=== PATIENT | female | born 1990 | race Caucasian/White ===

== ENCOUNTER 2020-04-27 14:59 | Emergency (ER) | payer OTHER ==
[~2020-04-27] VITALS: Ht 162.6 cm; Wt 90.7 kg
[2020-04-27] MEDS ORDERED: HYDROMORPHONE 1 MG/1 ML DISP.SYRIN IV ONE ×2 (15:30→16:45)
[2020-04-27] MEDS ORDERED: KETOROLAC TROMETHAMINE 15 MG INJ IVP ONE (15:30)
[2020-04-27] MEDS ORDERED: ONDANSETRON 4 MG/2 ML VIAL IV ONE (15:30)
[2020-04-27] MEDS ORDERED: IV NORMAL SALINE 1000 ML BAG IV ONE (15:30)
[2020-04-27 15:37] LABS: *BILIRUBIN,URIN NEGATIVE (NEGATIVE); *BLOOD, URINE 1+ (NEGATIVE); *CLARITY,URINE CLEAR (CLEAR); *COLOR,URINE YELLOW (YELLOW); *KETONES,URINE NEGATIVE (NEGATIVE); *UROBILINOGEN,URINE 0.2 E.U./dl (NORMAL); NITRITE, URINE NEGATIVE (NEGATIVE); UGLUCOSE NEGATIVE (NEGATIVE)
[2020-04-27 15:38] LABS: *URINE HCG, QUAL NEG (NEGATIVE); LEUKOCYTE ESTERASE ,URINE NEGATIVE (NEGATIVE)
[2020-04-27 15:42] LABS: BASOPHILS # (AUTO) 0.1 K/uL (0.0-8.0); BASOPHILS % (AUTO) 1.1 % (0.0-2.0); EOSINOPHILS # (AUTO) 0.1 K/uL (0.0-0.7); EOSINOPHILS % (AUTO) 1.5 % (0.0-7.0); HEMATOCRIT 40.3 % (31.2-41.9); HEMOGLOBIN 13.4 g/dL (10.9-14.3); LYMPHOCYTES # (AUTO) 2.4 K/uL (20.0-40.0); LYMPHOCYTES % (AUTO) 34.2 % (20.5-51.5); MEAN CORPUSCULAR HEMOGLOBIN 30.1 uug (24.7-32.8); MEAN CORPUSCULAR HGB CONC 33 g/dL (32.3-35.6); MEAN CORPUSCULAR VOLUME 90.1 fL (75.5-95.3); MONOCYTES # (AUTO) 0.5 K/uL (2.0-10.0); MONOCYTES % (AUTO) 7.6 % (0.0-11.0); NEUTROPHILS # (AUTO) 3.8 K/uL (1.8-8.9); NEUTROPHILS % (AUTO) 55.6 % (38.5-71.5); PLATELET COUNT (AUTO) 299 K/uL (179-408); RED BLOOD CELL COUNT(AUTO) 4.47 MIL/uL (3.63-4.92); WHITE BLOOD COUNT (AUTO) 6.9 K/uL (3.8-11.8)
[2020-04-27 15:44] LABS: CREATININE 0.9 mg/dL (0.6-1.3); POTASSIUM 4.5 mmol/L (3.5-5.1)
[2020-04-27] MEDS ORDERED: HYDROMORPHONE 1 MG/1 ML DISP.SYRIN ONE ×2 (15:48→16:58)
[2020-04-27] MEDS ORDERED: KETOROLAC TROMETHAMINE 30 MG INJ ONE (15:49)
[2020-04-27] MEDS ORDERED: ONDANSETRON 4 MG/2 ML VIAL ONE (15:49)
[2020-04-27 15:50] LABS: BILIRUBIN,DIRECT 0.1 mg/dL (0.0-0.2); BILIRUBIN,TOTAL 0.4 mg/dL (0.2-1.0); ETHANOL < 3 MG/DL (0-0); TOTAL PROTEIN, SERUM 7.2 g/dL (6.4-8.2)
[2020-04-27 15:52] LABS: *AMPHETAMINE, URINE NEGATIVE (NEGATIVE); *CANNABINOID, URINE POSITIVE (NEGATIVE); *COCCAINE, URINE NEGATIVE (NEGATIVE); *OPIATE, URINE NEGATIVE (NEGATIVE); *PHENCYCLIDINE SCREEN,URINE NEGATIVE (NEGATIVE)
--- NOTE | 2020-04-27 15:55 | NUR ---
PLACED PT ON MONITOR. IV PLACED. MEDS GIVEN ORDERED. URINE SENT TO LAB. PATIENT IS AWAKE AND ALERT. SHE CONSENTS TO CT WITH CONTRAST.
[2020-04-27] MEDS ORDERED: SWABABLE VALVE TRANSFER SET EA MC ONE (16:11)
[2020-04-27] MEDS ORDERED: IOHEXOL 300MG/ML 100 ML INFUS..BTL ONE (16:11)
[2020-04-27] MEDS ORDERED: IV NORMAL SALINE 250 ML IV ONE (16:11)
--- NOTE | 2020-04-27 16:42 | NUR ---
PATIENT STATES PAIN DIMINISHED ONLY SLIGHTLY. DR GOMEZ NOTIFIED. CT SCAN COMPLETED
[2020-04-27 16:45] LABS: WBC,URINE 0-3 /HPF (0-3)
[2020-04-27] MEDS ORDERED: LACTULOSE 20 G/30 ML LIQUID UDC PO ONE (17:15)
[2020-04-27] MEDS ORDERED: LACTULOSE 20 G/30 ML LIQUID UDC ONE (17:25)
--- NOTE | 2020-04-27 18:03 | NUR ---
patient states pain level has come down significantly. Ultrasound in process....
--- NOTE | 2020-04-27 18:29 | NUR ---
dr kumar at bedside speaking to patient about test results and plan of care.
--- NOTE | 2020-04-27 18:37 | NUR ---
DC, RX AND FOLLOW UP INSTRUCTIONS GIVEN AND EXPLAINED TO PATIENT WHO STATES SHE UNDERSTANDS ALL INSTRUCTIONS
--- NOTE | 2020-04-27 18:37 | NUR ---
IV removed. Catheter intact and site benign. Pressure and 4x4 gauze applied to site. No bleeding noted.
[2020-04-27 18:38] VITALS: BP 111/76
== END 2020-04-27 18:39 | disposition home or self-care (01) ==
LOC: ER 14:59
DX: K59.00 Constipation, unspecified (principal); R10.30 Lower abdominal pain, unspecified; Z88.0 Allergy status to penicillin; Z87.828 Personal history of other (healed) physical injury and trauma
CPT/HCPCS: 36415; 74177; 76856; 80048; 80076; 80307; 80320; 81001; 83690; 84703; 85025; 96361; 96374; 96375; 96376; 99285; J1170 ×2; J1885; J2405; Q9967; A4663; G0480; J7030; J7050